=== PATIENT | female | born 1975 | race Hispanic/Latino ===

== ENCOUNTER 2018-09-05 18:07 | Emergency (ER) | payer OTHER ==
[2018-09-05] MEDS ORDERED: HYDROCODONE/APAP 10MG-325MG TAB PO ONE (18:30)
[2018-09-05] MEDS ORDERED: CYCLOBENZAPRINE HCL 10 MG TAB PO ONE (18:30)
[2018-09-05] MEDS ORDERED: KETOROLAC TROMETHAMINE 60 MG/2 ML VIAL IM ONE (18:30)
--- NOTE | 2018-09-05 19:21 | Diagnostic Imaging Report ---
EXAMINATION: CHEST 2 VIEWS INDICATION: Pain. COMPARISON: None FINDINGS: TUBES and LINES: None. LUNGS: Lungs are well inflated. Lungs are clear. There is no evidence of pneumonia or pulmonary edema. PLEURA: No pleural effusion or pneumothorax. HEART AND MEDIASTINUM: The cardiomediastinal silhouette is unremarkable. BONES AND SOFT TISSUES: No acute osseous lesion. Soft tissues are unremarkable. UPPER ABDOMEN: No free air under the diaphragm. IMPRESSION: No acute thoracic abnormality. Signed by: Dr. Mateo Bradford M.D. on 09/05/2018 7:18 PM
== END 2018-09-05 21:39 | disposition home or self-care (01) ==
LOC: ER 18:07
DX: M25.512 Pain in left shoulder (principal); M54.6 Pain in thoracic spine; R07.89 Other chest pain; S46.812A Strain of other muscles, fascia and tendons at shoulder and upper arm level, left arm, initial encounter; S23.3XXA Sprain of ligaments of thoracic spine, initial encounter; S29.011A Strain of muscle and tendon of front wall of thorax, initial encounter; M54.12 Radiculopathy, cervical region
CPT/HCPCS: 71046; 93005; 99283; J1885